=== PATIENT | female | born 1965 | race Caucasian/White ===

== ENCOUNTER 2016-07-10 21:44 | Observation (INO) | payer OTHER ==
[~2016-07-10] VITALS: Ht 165.1 cm; Wt 76.8 kg
--- NOTE | ~2016-07-10 | HEMODYNAMI ---
PATIENT:COLBY KEY MEDICAL RECORD: [id number] : 67 [facility]D. D.2123 [id number] ADMISSION DATE: 07/10/16 Generatedon:07/11/201617:27 Patient name: COLBY KEY Patient #: [id number] SSN: D OB: 1965 Date of study: 07/11/2016 Page: Of Hemodynamic Procedure Report Patient Data Patient Demographics Procedure consent was obtained First Name: COLBY Gender: Female Last Name: YESI : 1965 [facility] Initial: [place] Age: 50 year(s) Patient #: [id number] Race: Unknown Additional ID: [id number] Contact details Address: [place] [address] State: [place] City: [place] Zip code: [address] Past Medical History Allergies: No known allergies Admission Admission Data Admission Date: 07/10/2016 Admission Time: 23:41 Admit Source: Emergency department Room #: D.2123 Lab Results Lab Result Date: 07/11/2016 Lab Result Time: 0:00 Biochemistry Name Units Result Min Max BUN mg/dl 9 --(*---)-- 7 18 Creatinine mg/dl 0.8 --(-*--)-- 0.6 1.3 CBC Name Units Result Min Max Hemoglobin g/dl 13.1 -*(----)-- 13.5 17.5 Procedure Procedure Types Cath Procedure Diagnostic Procedure [facility] w/Coronaries PCI Procedure Coronary Stent Initial Coronary Stent Additional Procedure Description Procedure Date Procedure Date: 07/11/2016 Procedure Start Time: 16:56 Procedure End Time: 17:27 Procedure Staff Name Function Rafael Garrison MD Performing Physician Tomás Jones RN Nurse Mariam Trotter RT Monitor Yonas Perez RT Scrub Sai Hargrove RN X Ray Technician Nikolay Roa RT Monitor Procedure Data Cath Procedure Fluoroscopy Diagnostic fluoroscopy Total fluoroscopy Time: 7.2 time: 7.2 min min Diagnostic fluoroscopy Total fluoroscopy dose: 486 dose: 486 mGy mGy Contrast Material Contrast Material Type Amount (ml) Isovue 300 136 Entry Location Entry Primary Successful Side Size Upsize Upsize Entry Closure Succes sful Closure Location (Fr) 1 (Fr) 2 (Fr) Remarks Device Remarks Femoral Right 6 Fr Vascade artery Short Closure System Estimated blood loss: 10 ml Diagnostic catheters Device Type Used For End Catheter Placement Cordis 5Fr Pigtail Procedure Catheter (MP) Cordis 5Fr JL 4.0 Procedure Catheter (MP) Cordis 5Fr 3DRC Catheter Procedure (MP) Procedure Medications Medication Administration Route Dosage Oxygen NC 2 l/min Lidocaine 2% added to field 20 Heparin Flush Bag added to field 2 bags (1000units/500ml NS) 0.9% NaCl I.V. 100 ml/hr Versed I.V. 1 mg Fentanyl I.V. 50 mcg Versed I.V. 1 mg Fentanyl I.V. 50 mcg Versed I.V. 1 mg Fentanyl I.V. 50 mcg Versed I.V. 1 mg Fentanyl I.V. 50 mcg Heparin Bolus I.V. 4000 units Integrilin (Bolus I.V. 6.8 ml 2mg/ml) Versed I.V. 1 mg Fentanyl I.V. 50 mcg Versed I.V. 1 mg Fentanyl I.V. 50 mcg Plavix P.O. 600 mg Hemodynamics Rest HGB: 13.1 (g/dl) Heart Rate: 76 (bpm) Pressure Samples Time Site Value (mmHg) Purpose Heart Use Rate(bpm) 17:03 LV 93/11,22 Snapshot 102 Snapshots Pre Cath Intra NCS Post Cath Vital Signs Time Heart Resp SPO2 etCO2 QD2iyfd NIBP Rhythm Pain Sedation Rate (ipm) (%) (mmHg) (mmHg) (mmHg) Status Level (bpm) 16:34:06 75 21 97 0 0 130/71(99) NSR 0 (11) 10(A) , No pain 16:38:22 74 21 100 0 0 127/70(95) NSR 0 (11) 10(A) , No pain 16:42:38 70 22 99 0 0 118/66(89) NSR 0 (11) 10(A) , No pain 16:46:52 69 20 99 0 0 115/58(84) NSR 0 (11) 10(A) , No pain 16:51:06 70 19 98 0 0 113/58(76) NSR 0 (11) 10(A) , No pain 16:55:20 73 18 98 0 0 108/57(88) NSR 0 (11) 10(A) , No pain 16:59:30 73 19 99 0 0 113/58(80) NSR 0 (11) 10(A) , No pain 17:03:44 69 16 99 0 0 112/55(80) NSR 0 (11) 9(A) , No pain 17:07:56 74 15 99 0 0 105/55(76) NSR 0 (11) 9(A) , No pain 17:12:06 80 17 99 0 0 106/54(83) NSR 0 (11) 9(A) , No pain 17:16:17 77 16 99 0 0 105/52(80) NSR 0 (11) 9(A) , No pain 17:20:27 81 16 98 0 0 118/55(83) NSR 0 (11) 10(A) , No pain 17:24:37 84 16 98 0 0 113/63(79) NSR 0 (11) 10(A) , No pain Medications Time Medication Route Dose Verified Delivered Reason Notes Effectiveness by by 16:48:01 Oxygen NC 2 Rafael Buffie used for l/min Meli Jones RN procedure 16:48:09 Lidocaine 2% added 20ml Rafael Rafael for local to vial Meli Garrison MD anesthetic field 16:48:16 Heparin Flush added 2 Rafael Rafael used for Bag to bags Meli Garrison MD procedure (1000units/500ml field NS) 16:48:24 0.9% NaCl I.V. 100 Rafael Buffie Per physician ml/hr Meli Jones RN 16:55:18 Versed I.V. 1 mg Rafael Buffie for sedation Meli Jones RN 16:55:23 Fentanyl I.V. 50 Rafael Buffie for sedation mcg Meli Jones RN 16:57:39 Versed I.V. 1 mg Rafael Buffie for sedation Meli Jones RN 16:57:43 Fentanyl I.V. 50 Rafael Buffie for sedation mcg Meli Jones RN 17:01:07 Versed I.V. 1 mg Rafael Buffie for sedation Meli Jones RN 17:01:11 Fentanyl I.V. 50 Rafael Buffie for sedation mcg Meli Jones RN 17:03:33 Versed I.V. 1 mg Rafael Tateie for sedation Meli Jones RN 17:03:36 Fentanyl I.V. 50 Rafael Buffie for sedation mcg Meli Jones RN 17:06:14 Heparin Bolus I.V. 4000 Rafael Buffie for verifi ed units Meli Jones RN anticoagulation with dr garrison 17:08:34 Integrilin I.V. 6.8 Rafael Tateie for (Bolus 2mg/ml) ml Meli Jones RN antiplatelet therapy 17:10:18 Versed I.V. 1 mg Rafael Buffie for sedation Meli Jones RN 17:10:22 Fentanyl I.V. 50 Rafael Buffie for sedation mcg Meli Jones RN 17:16:41 Versed I.V. 1 mg Rafael Tateie for sedation Meli Jones RN 17:16:45 Fentanyl I.V. 50 Rafael Tateie for sedation mcg Meli Jones RN 17:23:16 Plavix P.O. 600 Rafael Tateie for mg Meli Jones RN antiplatelet therapy Procedure Log Time Note 16:00:31 Sai Hargrove RN sent for patient. Start room use. 16:18:05 Admit Source: Emergency department 16:18:29 Diagnostic Cath status Elective 16:18:38 Time tracking: Regular hours 16:18:42 Plan of Care:Hemodynamics will remain stable., Cardiac rhythm will remain stable., Comfort level will be maintained., Respiratory function will remain adequate., Patient/ family verbilizes understanding of procedure., Procedure tolerated without complication., Recovers from procedure without complications.. 16:32:57 Patient received from PCU to CCL 1 Alert and oriented. Tansferred to table in Supine position. 16:32:59 Warm blankets applied, and teodora hugger turned on for patient comfort. 16:32:59 Correct patient and procedure confirmed by team. 16:33:01 Signed procedure consent form obtained from patient. 16:33:01 ECG and BP/O2 sat monitors applied to patient. 16:33:02 Vital chart was started 16:34:34 Baseline sample Acquired. 16:34:35 Full Disclosure recording started 16:39:35 H&P Date Dictated: 07/10/2016 Within 30 days and on chart.. 16:39:39 Pre-procedure instructions explained to patient. 16:39:41 Family in waiting room. 16:39:44 Patient NPO since Midnight. 16:43:52 Patient allergic to No known allergies 16:44:12 Is the patient allergic to Iodine/contrast media? No. 16:44:20 Is patient on blood thinner?Yes 16:44:26 ACC The patient was administered the following blood thiners within the last 24 hours: ACCAspirin, ACCLovenox 16:44:44 Patient diabetic? No. 16:44:51 Snore? Yes 16:44:59 Sleep apnea? No 16:45:00 Deviated septum? No 16:45:02 Opens mouth fully? Yes 16:45:03 Sticks out tongue? Yes 16:45:10 Dentures? No ? 16:45:23 Patient pain scale 0/10 ?. 16:45:30 IV patent on arrival in right forearm with 0.9% NaCl at [facility]. 16:46:45 Lab Result : Creatinine 0.8 mg/dl 16:46:45 Lab Result : BUN 9 mg/dl 16:46:45 Lab Result : Hemoglobin 13.1 g/dl 16:47:06 Modified Albaro's test Ulnar < 7 seconds 16:47:17 Right Radial & Right Groin area was prepped with chlora-prep and draped in sterile fashion 16:47:18 Alarms reviewed by R. N. 16:47:19 Sharps counted by scrub and verified by R.N. 16:47:21 Physician paged 16:47:36 Use device set Radial Dx 16:47:38 Acist Syringe opened to sterile field. 16:47:39 Cardinal Cath Pack opened to sterile field. 16:47:39 Bag Decanter opened to sterile field. 16:47:40 Terumo 6Fr Slender Glidesheath opened to sterile field. 16:47:41 St Lex 260cm J .035 wire opened to sterile field. 16:47:42 Acist Hand Control opened to sterile field. 16:47:42 Acist Manifold opened to sterile field. 16:47:48 Tegaderm 4 x 4 opened to sterile field. 16:48:01 Oxygen 2 l/min NC was given by Buffie Jones RN; used for procedure; 16:48:09 Lidocaine 2% 20ml vial added to field was given by Rafael Garrison MD; for local anesthetic; 16:48:16 Heparin Flush Bag (1000units/500ml NS) 2 bags added to field was given by Rafael Garrison MD; used for procedure; 16:48:24 0.9% NaCl 100 ml/hr I.V. was given by Tomás Jones RN; Per physician; 16:51:25 Zero performed for pressure channel P1 16:54:40 Physician arrived 16:54:41 --------ALL STOP TIME OUT------ 16:54:42 Final Timeout: patient, procedure, and site verified with staff and physician. All members of the team are in agreement. 16:54:51 Right Radial & Right Groin site verified by team. 16:54:56 Physical assessment completed. ASA score P 2 - A patient with mild systemic disease as per Rafael Garrison MD. 16:55:08 Sedation plan: IV Moderate Sedation Versed, Fentanyl 16:55:18 Versed 1 mg I.V. was given by Tomás Jones RN; for sedation; 16:55:23 Fentanyl 50 mcg I.V. was given by Tomás Jones RN; for sedation; 16:56:10 Procedure started. 16:56:18 Local anesthetic to right radial artery with Lidocaine 2% by Rafael Garrison MD.INITIAL ACCESS ONLY 16:57:39 Versed 1 mg I.V. was given by Tomás Jones RN; for sedation; 16:57:43 Fentanyl 50 mcg I.V. was given by Tomás Jones RN; for sedation; 17:00:29 Local anesthetic to right femoral artery with Lidocaine 2% by Rafael Garrison MD.ADDITIONAL ACCESS 17:00:48 Use device set Femoral Dx 17:01:07 Versed 1 mg I.V. was given by Tomás Jones RN; for sedation; 17:01:10 Cordis Infinity 5Fr Multipack catheter opened to sterile field. 17:01:11 Fentanyl 50 mcg I.V. was given by Tomás Jones RN; for sedation; 17:01:27 Terumo 6Fr Megargel Sheath opened to sterile field. 17:01:52 PRESSURE HELD TO RRA 17:02:07 A 6 Fr Short sheath was inserted into the Right Femoral artery 17:02:47 A Cordis 5Fr Pigtail Catheter (MP) was advanced over the wire and used for Procedure. 17:03:25 LV gram done using HOLDER 17:03:27 LV hemodynamics recorded. 17:03:33 Versed 1 mg I.V. was given by Tomás Jones RN; for sedation; 17:03:36 Fentanyl 50 mcg I.V. was given by Tomás Jones RN; for sedation; 17:03:40 LV Function : Normal 17:03:53 EF : 60 % 17:03:57 Catheter removed. 17:04:04 A Cordis 5Fr JL 4.0 Catheter (MP) was advanced over the wire and used for Procedure. 17:04:11 LCA angiography performed. 17:04:31 Catheter removed. 17:04:43 A Cordis 5Fr 3DRC Catheter (MP) was advanced over the wire and used for Procedure. 17:05:14 RCA angiography performed. 17:05:16 Catheter removed. 17:05:17 Proceeding to intervention. 17:05:27 Chappell Upward Mobilityisper J 300cm 0.014 guide wire opened to sterile field. 17:05:29 Cordis 6FR XBLAD 3.5 guide catheter opened to sterile field. 17:05:30 CodasystemixCompak Inflation Kit opened to sterile field. 17:05:56 Procedure type changed to Cath procedure, Diagnostic procedure, LHC, LHC w/Coronaries, PCI procedure, Coronary Stent Initial, Coronary Stent Additional 17:06:03 PCI Cath status Elective 17:06:14 Heparin Bolus 4000 units I.V. was given by Tomás Jones RN; for anticoagulation; verified with dr garrison 17:06:16 ACC PCI Site: mLAD has 75% stenosis. 17:06:21 ACC Pre-intervention CARMELA Flow is 3. 17:06:32 6 Fr XBLAD 3.5 guide catheter was inserted over the wire 17:07:42 WHISPER wire advanced. 17:08:22 Wire advanced across lesion. 17:08:34 Integrilin (Bolus 2mg/ml) 6.8 ml I.V. was given by Tomás Jones RN; for antiplatelet therapy; 17:08:47 Inflation Number: 1 A SeedInvesttronic Resolute 3.0 X 15 stent was prepped and advanced across the Mid LAD. The stent was deployed at 13 YARELIS for 0:10 (min:sec). 17:10:18 Versed 1 mg I.V. was given by Tomás Jones RN; for sedation; 17:10:22 Fentanyl 50 mcg I.V. was given by Tomás Jones RN; for sedation; 17:10:41 Stent catheter was removed intact over wire. 17:12:32 Inflation Number: 1 A Medtronic Resolute 3.0 X 9 stent was prepped and advanced across the Prox LAD. The stent was deployed at 11 YARELIS for 0:10 (min:sec). 17:13:17 Wire redirected to DIAGONAL. 17:13:29 Stent catheter was removed intact over wire. 17:15:34 Inflation number: 1 A Euphora 2.5 x 10 Balloon was prepped and advanced across the 1st Diag, then inflated to 11 YARELIS for 0:10 (min:sec). 17:16:14 Balloon removed over the wire. 17:16:41 Versed 1 mg I.V. was given by Tomás Jones RN; for sedation; 17:16:45 Fentanyl 50 mcg I.V. was given by Tomás Jones RN; for sedation; 17:17:44 Inflation Number: 2 A Medtronic Resolute 2.25 X 8 stent was prepped and advanced across the 1st Diag. The stent was deployed at 11 YARELIS for 0:10 (min:sec). 17:17:56 Stent catheter was removed intact over wire. 17:17:57 Wire removed. 17:17:57 Guide catheter removed. 17:18:19 Vascade 6/7 Fr Closure Device opened to sterile field. 17:18:34 Sheath removed intact; hemostasis achieved with Vascade Closure System to the Right Femoral artery. 17:18:39 Procedure ended.(Physican Out) 17:19:17 Fluoroscopy time 07.20 minutes. 17:19:22 Fluoroscopy dose: 486 mGy 17:19:22 Flurop Dose total: 486 17:19:30 Contrast amount:Isovue 300 136ml. 17:19:31 Sharps counted by scrub and verified by R.N. 17:21:39 MARIAM WAS RELEIVED OUT BY NIKOLAY PRIOR TO PROCEDURE START 17:23:16 Plavix 600 mg P.O. was given by Tomás Jones RN; for antiplatelet therapy; 17:25:05 Insertion/operative site no bleeding no hematoma. 17:25:09 Post-op/insertion site Right Femoral artery dressed using a 4 x 4 and Tegaderm. 17:26:03 Post right femoral artery:stable 17:26:20 Post procedure: right dorsailis pedis pulse 2+ Normal; easily identifiable; not easily obliterated. 17:26:25 Post-procedure physical assessment completed. ASA score P 2 - A patient with mild systemic disease as per Rafael Garrison MD. 17:26:30 Post procedure rhythm: sinus rhythm 17:26:34 Estimated blood loss: 10 ml 17:26:36 Post procedure instruction explained to patient.Patient verbalizes understanding. 17:26:37 Patient needs reinforcement of post procedure teaching. 17:26:39 Procedure and supply charges have been captured, reviewed, submitted and are correct. 17:26:44 Vital chart was stopped 17:26:50 See physician's report for complete and final results. 17:27:05 Report given to PCU. 17:27:12 Patient transfered to PCU with Bed. 17:27:16 Procedure ended. 17:27:16 Full Disclosure recording stopped 17:27:27 ACC-PCI Only Patient was given prescriptions, or instructed by Rafael Garrison MD to start/continue the following medications upon discharge: Aspirin, Plavix 17:27:29 End room use (Document Last) Intervention Summary Intervention Notes Time ActionType Lesion and Equipment Action# Pressure Duration Attributes Used 17:08:47 Place stent Mid LAD Medtronic 1 13 00:10 Resolute 3.0 X 15 stent 17:12:32 Place stent Prox LAD Medtronic 1 11 00:10 Resolute 3.0 X 9 stent 17:15:34 Inflate 1st Diag Euphora 1 11 00:10 balloon 2.5 x [address] 17:17:44 Place stent 1st Diag Medtronic 2 11 00:10 Resolute 2.25 X 8 stent Device Usage Item Name Manufacture Quantity Catalog Hospital Part Current Minima l Lot# / Number Charge Number Stock Stock Serial# Code Pat Stewart 1 27428 [id number] 683345 995314 20 happn [employer] Inc Cardinal Cardinal 1 [id number] 08484 782403 5 Cath Pack Health Bag Microtek 1 042619 78610 800667 5 Foods You Can Inc. Terumo 6Fr Terumo 1 [id number] 474970 175708 832355 [address] Lex St Lex 1 540169 386521 514396 625275 30 260cm J .035 wire Acist Hand Acist 1 25657 891867 915502 098487 5 JoySports Medical Systems Inc Acist Acist 1 45553 695191 784472 365057 5 AccuSilicon Medical Systems Inc Tegaderm 4 3M 1 [id number] 382132 364130 291876 5 x 4 Cordis Cardinal 1 [id number] 077539 14565 172797 30 Infinity Health 5Fr Multipack catheter Terumo 6Fr Terumo 1 [id number] 997113 604850 411671 40 Megargel Sheath Cordis 5Fr Cardinal 1 572324 5 Pigtail Health Catheter (MP) Cordis 5Fr Cardinal 1 [id number] 5 JL 4.0 Health Catheter (MP) Cordis 5Fr Cardinal 1 276028 5 3DRC Health Catheter (MP) Chappell Chappell 1 [id number] 164484 938564 397560 5 Whisper J Vascular 300cm 0.014 guide wire Cordis 6FR Cardinal 1 [id number] 360063 463859 030230 10 XBLAD 3.5 Health guide catheter Merit Merit 1 [id number] 034444 467794 691266 15 BasixCompak Medical Inflation Kit Medtronic Medtronic 1 [id number] 695799 855389 3 [id number] Resolute 3.0 X 15 stent Medtronic Medtronic 1 [id number] 157998 764924 1 [id number] Resolute 3.0 X 9 stent Euphora 2.5 Medtronic 1 [id number] 859196 744354 839940 5 x 10 Balloon Medtronic Medtronic 1 [id number] 469983 379003 9 [id number] Resolute 2.25 X 8 stent Vascade 6/7 Cardiva 1 [id number] 672919 777300 744006 5 Fr Closure Medical, Device Inc. Signature Audit [place] Stage Time Signature Unsigned Intra-Procedure 07/11/2016 Nikolay Roa 5:27:55 PM RT(R) (CV) Signatures Monitor : Mariam Trotter Signature : RT Date : Time : Monitor : Nikolay Roa RT Signature : Date : Time : [address] [place] [address]
[2016-07-10 22:31] LABS: BASOPHILS 0.2 % (0.0-2.0); EOSINOPHILS 2.6 % (0-7); HEMATOCRIT 40.8 % (36.0-48.0); HEMOGLOBIN 13.5 g/dL (12-16); IMMATURE GRANULOCYTES 0.1 % (0-5); LYMPHOCYTES 37.3 % (15-50); MCH 30.1 pg (26.0-34.0); MCHC 33.1 g/dL (31.0-37.0); MCV 91.1 fL (80.0-100.0); MEAN PLATELET VOLUME 9.3 fL (7.4-10.4); MONOCYTES 6.3 % (2-11); NEUTROPHILS 53.5 % (40-80); PLATELET COUNT 281 10x3/uL (130-400); RBC 4.48 10x6/uL (4.00-5.40); RDW 12.4 % (11.5-14.5); WBC 8.2 10x3/uL (4.8-10.8)
[2016-07-10 22:44] LABS: ALBUMIN 3.8 g/dL (3.4-5.0); ALKALINE PHOSPHATASE 59 U/L (46-116); ALT (SGPT) 32 U/L (10-68); CALCIUM 9.1 mg/dL (8.5-10.1); CARBON DIOXIDE 32.4 mmol/L (21.0-32.0); CHLORIDE - SERUM 104 mmol/L (98-107); CREATININE - SERUM 0.8 mg/dL (0.6-1.3); POTASSIUM - SERUM 3.5 mmol/L (3.5-5.1); PROTEIN - SERUM 6.9 g/dL (6.4-8.2); SODIUM 141 mmol/L (136-145); UREA NITROGEN 9 mg/dL (7-18); eGFR NON AFRICAN AMERICAN 81 mL/min (90-120)
[2016-07-10 22:57] LABS: CKMB 0.4 U/L (0.0-3.6); CREATINE KINASE 82 UL (21-215); TROPONIN-I < 0.017 ng/mL (0.000-0.060)
[2016-07-10 23:01] LABS: CALC OSMOLALITY 279 mosm/kg (275-300); GLUCOSE 97 mg/dL (74-106)
--- NOTE | 2016-07-11 00:58 | NUR ---
PT RESTING, BED LOW AND LOCKED, CALL LIGHT IN REACH. RESPIRATIONS UNLABORED AND NO S&S OF ACUTE DISTRESS NOTED. WILL CONTINUE TO MONITOR.
[2016-07-11] MEDS ORDERED: NORVASC2.5 MG PO (02:19)
[2016-07-11] MEDS ORDERED: ATIVAN1 MG (02:19)
[2016-07-11] MEDS ORDERED: PEPCID20 MG PO (02:20)
[2016-07-11] MEDS ORDERED: LIPITOR20 MG PO (02:20)
[2016-07-11 02:32] VITALS: BP 162/79; Ht 165.1 cm; Wt 76.8 kg
[2016-07-11 04:00] VITALS: BP 159/76
[2016-07-11 06:34] LABS: CKMB 0.5 U/L (0.0-3.6); CREATINE KINASE 66 UL (21-215)
[2016-07-11 06:35] LABS: TROPONIN-I < 0.017 ng/mL (0.000-0.060)
--- NOTE | 2016-07-11 06:42 | NUR ---
RESTING QUIETLY IN BED, NO DISTRESS NOTED
--- NOTE | 2016-07-11 07:45 | NUR ---
PATIENT WAS SLEEPING WITH EYES CLOSED THIS MORNING WHEN I ENTERED. SHE AWOKE EASILY. DENIED ANY CHEST PAINS, UNDERSTANDS THAT SHE IS NPO UNTIL SEEN BY MD AND IS WITHOUT QUESTIONS AT THIS TIME. HER IV SL IS WITHOUT S/S OF IRRITATION.
--- NOTE | 2016-07-11 08:13 | NUR ---
ORDERS FOR HEART CATH RECEIVED. EIS TO RECEIVE BREAKFAST AND THEN BE NPO.
[2016-07-11 08:31] VITALS: BP 120/75
[2016-07-11 08:46] LABS: CALC OSMOLALITY 279 mosm/kg (275-300); CALCIUM 8.7 mg/dL (8.5-10.1); CARBON DIOXIDE 27.8 mmol/L (21.0-32.0); CHLORIDE - SERUM 105 mmol/L (98-107); CREATININE - SERUM 0.8 mg/dL (0.6-1.3); GLUCOSE 99 mg/dL (74-106); SODIUM 141 mmol/L (136-145); UREA NITROGEN 9 mg/dL (7-18); eGFR NON AFRICAN AMERICAN 81 mL/min (90-120)
[2016-07-11 08:47] LABS: POTASSIUM - SERUM 4.2 mmol/L (3.5-5.1)
[2016-07-11 08:55] LABS: BASOPHILS 0.4 % (0.0-2.0); EOSINOPHILS 2.5 % (0-7); HEMATOCRIT 39.6 % (36.0-48.0); HEMOGLOBIN 13.1 g/dL (12-16); IMMATURE GRANULOCYTES 0.1 % (0-5); LYMPHOCYTES 43.1 % (15-50); MCH 30.2 pg (26.0-34.0); MCHC 33.1 g/dL (31.0-37.0); MCV 91.2 fL (80.0-100.0); MEAN PLATELET VOLUME 9.7 fL (7.4-10.4); MONOCYTES 6.3 % (2-11); NEUTROPHILS 47.6 % (40-80); PLATELET COUNT 264 10x3/uL (130-400); RBC 4.34 10x6/uL (4.00-5.40); RDW 12.5 % (11.5-14.5); WBC 7.7 10x3/uL (4.8-10.8)
[2016-07-11 11:42] VITALS: BP 109/67
--- NOTE | 2016-07-11 12:49 | NUR ---
RECEIVED CALL FROM ELECTROLOG OPERATOR. BRYNNNET TO EAT LIGHT LUNCH AND THEN NPO. TO GO FOR HEART CATH AFTER CLINIC TODAY. FAMILY NOTIFIED. PATIENT RESTING WITH EYES CLOSED.
[2016-07-11 12:59] LABS: CKMB 0.2 U/L (0.0-3.6); CREATINE KINASE 58 UL (21-215); TROPONIN-I < 0.017 ng/mL (0.000-0.060)
--- NOTE | 2016-07-11 14:16 | NUR ---
TYLENOL GIVEN FOR C/O [place] RATED A 9
[2016-07-11 15:51] VITALS: BP 117/48
--- NOTE | 2016-07-11 18:38 | NUR ---
PATEINT IS RESTING QUIETLY WITH EYES CLOSED, AWAKENS EASILY TO MY ENTRY. HER GROIN IS SOFT WITHOUT EVIDENCE OF BLEEDING.
[2016-07-11 19:00] VITALS: BP 104/54
--- NOTE | 2016-07-11 19:03 | NUR ---
LAYING IN BED, AAOX3, SKIN WARM AND DRY, RESP UNLABORED, IV PATENT TO RIGHT AC, RIGHT GROIN CATH SITE DRY AND INTACT WITH NO SWELLING NOTED, AT BEDSIDE, DENIES NEEDS
[2016-07-12] VITALS: BP 125/67
--- NOTE | 2016-07-12 01:49 | NUR ---
PT SLEEPING. NO S&S OF DISTRESS NOTED. TELEMETRY SHOWING NSR AT 70 BPM. BREATHING UNLABORED. BED LOW AND LOCKED, CALL LIGHT IN REACH. WILL CONTINUE TO MONITOR.
[2016-07-12 04:00] VITALS: BP 120/63
[2016-07-12] MEDS ORDERED: ATIVAN1 MG PO (07:14)
[2016-07-12] MEDS ORDERED: PLAVIX75 MG PO (07:15)
[2016-07-12] MEDS ORDERED: ASPIRIN81 MG PO (07:15)
[2016-07-12 08:21] VITALS: BP 108/57
--- NOTE | 2016-07-12 09:06 | NUR ---
D/C PTS R.AC PIV WITH CATHETER TIP FULLY INTACT. DISCHARGE INSTRUCTIONS GIVEN AND PAPERS SIGNED. PT DENIES ANY QUESTIONS OR CONCERNS. AT BEDSIDE FOR LABOR SPECIALIST. TELEMETRY RETURNED TO STATION. WILL CPOC.
--- NOTE | 2016-07-17 14:16 | OP ---
PATIENT NAME: COLBY KEY MEDICAL RECORD: [id number] :67 LOCATION:D.M2 D.2123 ADMISSION DATE:07/10/16 SURGEON: ELIZABETH MIRELES MD DATE OF OPERATION: 07/11/2016 PROCEDURES: 1. PTCA stent LAD. 2. PTCA stent LAD diagonal. 3. Left heart catheterization. 4. Selective coronary angiography. 5. Left ventriculogram. INDICATION: Angina and coronary artery disease. PROCEDURE: After informed consent was obtained and after detailed explanation of risks, benefits as well as alternative therapies, the patient elected to proceed with angiogram and angioplasty. The right femoral area was prepped and draped in normal sterile fashion. The right femoral artery was cannulated via modified Seldinger technique with placement of 6-Maori sheath. All catheters exchanged through this sheath. FINDINGS: Left ventriculogram was performed in standard 30-degree HOLDER view, reveals good cardiac wall motion throughout all segments. Overall ejection fraction estimated 60%. SELECTIVE CORONARY ANGIOGRAPHY: 1. Left main showed no significant angiographic disease. 2. Left anterior descending has greater than 70% stenosis of the LAD, diagonal as well as the LAD. 3. Left circumflex shows moderate irregularities, but no flow-limiting stenosis. 4. Right coronary has moderate irregularities, but no flow-limiting stenosis. PTCA STENT OF THE LAD and LAD diagonal. The LAD was addressed with a 3.0 x 15 and 3.0 x 9 mm Resolute stent, diagonal with a 2.25 x 9 mm Resolute stent. Result was 0% residual throughout. No angiographic evidence of dissection or thrombus. OVERALL IMPRESSION: Successful percutaneous transluminal coronary angioplasty stent of the left anterior descending and left anterior descending diagonal, both going from greater than 75% initial stenosis to 0% residual. TRANSINT:[id number] Voice Confirmation ID: [id number] DOCUMENT ID: [id number] ELIZABETH MIRELES MD at 1416 CC: [id number] DICTATION DATE: 07/11/16 172 MACHINERY CLEANER: 07/11/161926 DIS IN 07/12/16 [facility] [address] [place] [address]
--- NOTE | 2016-08-11 08:46 | HP ---
PATIENT: COLBY KEY MEDICAL RECORD: [id number] ACCOUNT: [id number] LOCATION:.[facility]2123 : 67 ADMISSION DATE: 07/10/16 HISTORY AND PHYSICAL EXAMINATION ADMITTING DIAGNOSES: 1. Angina. 2. Coronary artery disease. HISTORY OF PRESENT ILLNESS: Mrs. Key presents with chest pain compatible with angina in an escalating unstable fashion, past history of coronary artery disease. PHYSICAL EXAMINATION: GENERAL APPEARANCE: Well-nourished, well-developed, appears stated age. Level of distress, comfortable. PSYCHIATRIC: Mental status, alert, normal affect. Orientation, oriented to time, place and person. EYES: Lids and conjunctiva, noninjected. No discharge, no pallor. ENT: Lips, teeth, gums, normal dentition. Oropharynx, no cyanosis, no pallor. NECK: Carotid arteries, bilateral normal upstroke, no bruits, no thrills. JUGULAR VEINS: No jugular venous pressure or distention. CERVICAL LYMPH NODES: Nontender, nonenlarged. THYROID: Not enlarged. Nontender. No nodules. LUNGS: Respiratory effort, unlabored. CHEST: Normal curvature. No thoracic deformity. No chest wall tenderness. Percussion, resonant. Auscultation, clear. No wheezes, no rales, no rhonchi. CARDIOVASCULAR: Precordial exam, nondisplaced. No heaves or pericardial thrills. Rate and rhythm, regular. Heart sounds, normal S1, normal S2. No S3, no gallop, no rub. Systolic murmur, not heard. Diastolic murmur, not heard. EXTREMITIES: No cyanosis, no edema. Peripheral pulses, full and equal in all extremities, except as noted. No bruits appreciated. ABDOMEN: Soft, nondistended. Normal aorta. No bruit. Nontender. No masses. Liver, nontender, no hepatomegaly. Spleen, nontender, no splenomegaly. MUSCULOSKELETAL: No joint tenderness. No joint swelling. No erythema. NEUROLOGICAL: Normal gait, normal strength, normal tone. SKIN: Warm and dry. REVIEW OF SYSTEMS: The patient reports easy bruising but reports no swollen glands. The patient reports no fever, no night sweats, no significant weight gain, no significant weight loss. No significant exercise tolerance. The patient reports no dry eyes, no irritation, no vision change. Patient reports no difficulty hearing and no ear pain. Patient reports no frequent nose bleeds or nose and sinus problems. Patient reports on arm pain on exertion. No shortness of breath while lying down. No history of heart murmur. Patient reports no cough, no wheezing or coughing up blood. Patient reports no abdominal pain, no vomiting. Normal appetite. No diarrhea and not vomiting blood. No nausea and no constipation. Patient reports no incontinence. No difficulty urinating. No hematuria. No increased frequency. Patient reports no muscle aches. No weakness, no arthralgias, no back pain. No swelling of the extremities. Patient reports no abnormal mole, no jaundice, no rashes. Reports no loss of consciousness. No weakness and no numbness. No seizures, dizziness, or headaches. The patient reports no depression, no sleep disturbance, feeling safe in a relationship and no alcohol abuse. Patient reports on fatigue. Reports no runny nose or sinus pressure. No itching, no hives, and no frequent HISTORY AND PHYSICAL [id number] COLBY KEY sneezing. OVERALL IMPRESSION: Anginal symptomatology, escalating fashion, most likely she does have hemodynamically significant recurrent coronary artery disease. We will proceed with coronary angiography. Further care depends upon findings of the angiography. TRANSINT:[id number] Voice Confirmation ID: [id number] DOCUMENT ID: [id number] ELIZABETH MIRELES MD at 0846 CC: [id number] DICTATION DATE: 07/28/16 1228 LEATHER PRODUCTION ARTISAN: 07/28/16 1257 DIS IN 07/12/16 [id number] [place] [address]
--- NOTE | 2016-09-14 08:41 | DS ---
PATIENT:COLBY KEY :67 MEDICAL RECORD: [id number] DISCHARGE SUMMARY ADMISSION DATE: 07/10/16 DISCHARGE DATE: 07/12/16 DISCHARGE DIAGNOSES: 1. Angina. 2. Coronary artery disease. 3. Percutaneous transluminal coronary angioplasty stent left anterior descending and left anterior descending diagonal on this admission. HOSPITAL COURSE: Ms. Key presents with anginal symptomatology, found to have significant disease of the LAD and LAD diagonal and underwent successful PTCA stent of both territories. She had an uneventful postop course. She was discharged home with the addition of aspirin and Plavix to her medical regimen. We will follow up with [facility] in 1 month. TRANSINT:[id number] Voice Confirmation ID: [id number] DOCUMENT ID: [id number] ELIZABETH MIRELES MD at 0841 CC: [id number] DICTATION DATE: 09/12/16 1445 BLADDER BLOWER: 09/13/16 0253 DIS IN 07/12/16 [id number] [place] [address]
== END 2016-07-12 09:55 | disposition home or self-care (01) ==
LOC: D.ER 21:44 → OBSVTIME 23:41 → D.M2 23:41
PROVIDERS: Emergency Medicine; ADMIT Internal Medicine Interventional Cardiology
DX: I25.110 Atherosclerotic heart disease of native coronary artery with unstable angina pectoris (principal); I10 Essential (primary) hypertension; Z72.0 Tobacco use

== ENCOUNTER → 2016-07-27 17:03 | Outpatient (CLI) | payer OTHER ==
[2016-07-11 02:32] VITALS: BMI 28.1
[~2016-07-27 17:03] MED LIST: ASPIRIN81 MG PO; ATIVAN1 MG; ATIVAN1 MG PO; LIPITOR20 MG PO; NORVASC2.5 MG PO; PEPCID20 MG PO; PLAVIX75 MG PO; PRILOSEC10 M1 PO
== END | disposition home or self-care (01) ==
LOC: D.CT 17:00
DX: R10.9 Unspecified abdominal pain (principal)

== ENCOUNTER 2016-09-07 20:46 | Emergency (ER) | payer OTHER ==
[2016-07-11 02:32] VITALS: BMI 28.1
[~2016-09-07 20:46] MED LIST changes: -PRILOSEC10 M1 PO
[2016-09-07 22:08] LABS: BASOPHILS 0.4 % (0.0-2.0); EOSINOPHILS 5.1 % (0-7); HEMATOCRIT 40.2 % (36.0-48.0); HEMOGLOBIN 13.6 g/dL (12-16); IMMATURE GRANULOCYTES 0.1 % (0-5); LYMPHOCYTES 36.7 % (15-50); MCHC 33.8 g/dL (31.0-37.0); MCV 91.6 fL (80.0-100.0); MEAN PLATELET VOLUME 9.4 fL (7.4-10.4); MONOCYTES 6.8 % (2-11); NEUTROPHILS 50.9 % (40-80); PLATELET COUNT 252 10x3/uL (130-400); RBC 4.39 10x6/uL (4.00-5.40); RDW 12.6 % (11.5-14.5); WBC 7.2 10x3/uL (4.8-10.8)
[2016-09-07 22:23] LABS: ALBUMIN 4.2 g/dL (3.4-5.0); ALKALINE PHOSPHATASE 72 U/L (46-116); ALT (SGPT) 39 U/L (10-68); BILIRUBIN - TOTAL 0.26 mg/dL (0.2-1.3); CALC OSMOLALITY 284 mosm/kg (275-300); CALCIUM 9.3 mg/dL (8.5-10.1); CARBON DIOXIDE 28.7 mmol/L (21.0-32.0); CHLORIDE - SERUM 105 mmol/L (98-107); CREATININE - SERUM 0.9 mg/dL (0.6-1.3); GLUCOSE 98 mg/dL (74-106); POTASSIUM - SERUM 3.9 mmol/L (3.5-5.1); PROTEIN - SERUM 7.8 g/dL (6.4-8.2); SODIUM 142 mmol/L (136-145); UREA NITROGEN 18 mg/dL (7-18); eGFR NON AFRICAN AMERICAN 70 mL/min (90-120)
[2016-09-07 22:51] LABS: CKMB 0.5 U/L (0.0-3.6); CREATINE KINASE 96 UL (21-215)
[2016-09-07 22:52] LABS: TROPONIN-I < 0.017 ng/mL (0.000-0.060)
== END 2016-09-07 23:28 | disposition home or self-care (01) ==
LOC: D.ER 20:46
PROVIDERS: Family Medicine
DX: R07.9 Chest pain, unspecified (principal); K22.70 Barrett's esophagus without dysplasia; F41.0 Panic disorder [episodic paroxysmal anxiety]; R00.1 Bradycardia, unspecified

== ENCOUNTER 2016-09-18 07:24 | Outpatient (CLI) | payer OTHER ==
[~2016-09-18] VITALS: Ht 165.1 cm; Wt 77.3 kg
--- NOTE | ~2016-09-18 | HEMODYNAMI ---
PATIENT:COLBY KEY MEDICAL RECORD: [id number] : 67 LOCATION:[facility] ADMISSION DATE: 09/18/16 Generatedon:09/18/20169:43 Patient name: COLBY KEY Patient #: [id number] SSN: [id number] : 1965 Date of study: 09/18/2016 Page: Of Hemodynamic Procedure Report Patient Data Patient Demographics Procedure consent was obtained First Name: COLBY Gender: Female Last Name: YESI : 1965 [facility] Initial: [place] Age: 51 year(s) Patient #: [id number] Race: SSN: [id number] Additional ID: [id number] Contact details Address: [place] [place] [address] State: [place] City: [place] Zip code: [address] Past Medical History Allergies: No known allergies Admission Admission Data Admission Date: 09/18/2016 Admission Time: 7:24 Arrival Date: 09/18/2016 Arrival Time: 9:30 Admit Source: Other Insurance Payor: Private health insurance Height (in.): 65 BSA: 1.88 (m2) Height (cm.): 165.1 BMI: 29.45 (kg/m2) Weight (lbs.): 177 Weight (kg.): 80.29 Lab Results Lab Result Date: 09/18/2016 Lab Result Time: 0:00 Biochemistry Name Units Result Min Max BUN mg/dl 14 --(--*-)-- 7 18 Creatinine mg/dl 0.9 --(-*--)-- 0.6 1.3 CBC Name Units Result Min Max Hemoglobin g/dl 12.8 -*(----)-- 13.5 17.5 Procedure Procedure Types Cath Procedure Diagnostic Procedure LHC LHC w/Coronaries Miscellaneous Procedures Moderate Sedation up to 15 minutes Procedure Description Procedure Date Procedure Date: 09/18/2016 Procedure Start Time: 9:32 Procedure End Time: 9:40 Procedure Staff Name Function Rafael Garrison MD Performing Physician Maria De Jesus Ace RT Scrub Tomás Jones RN Nurse Serena Trotter RT Monitor Indication Angina Procedure Data Cath Procedure Fluoroscopy Diagnostic fluoroscopy Total fluoroscopy Time: 0.7 time: 0.7 min min Diagnostic fluoroscopy Total fluoroscopy dose: 229 dose: 229 mGy mGy Contrast Material Contrast Material Type Amount (ml) Isovue 370 43 Entry Location Entry Primary Successful Side Size Upsize Upsize Entry Closure Succes sful Closure Location (Fr) 1 (Fr) 2 (Fr) Remarks Device Remarks Femoral Right 5 Fr Exoseal artery Estimated blood loss: 5 ml Diagnostic catheters Device Type Used For End Catheter Placement Cordis 5Fr Pigtail LV Angiography Catheter (MP) Cordis 5Fr JL 4.0 Left Coronary Catheter (MP) Angiography Cordis 5Fr 3DRC Catheter Right Coronary (MP) Angiography Procedure Complications No complications Procedure Medications Medication Administration Route Dosage Oxygen NC 2 l/min Lidocaine 2% added to field 20 Heparin Flush Bag added to field 2 bags (1000units/500ml NS) 0.9% NaCl I.V. 100 ml/hr Versed I.V. 1 mg Fentanyl I.V. 50 mcg Versed I.V. 1 mg Fentanyl I.V. 50 mcg Fentanyl I.V. 50 mcg Versed I.V. 0.5 mg Fentanyl I.V. 50 mcg Hemodynamics Rest BSA: 1.88 (m2) HGB: 12.8 (g/dl) O2 Consumption: Estimated: 187.79 (ml/min) O2 Co nsumption indexed: Estimated:99.89 (ml/min/m) Heart Rate: 75 (bpm) Pressure Samples Time Site Value (mmHg) Purpose Heart Use Rate(bpm) 9:33 LV 23/19,23 Snapshot 82 Snapshots Pre Cath Intra NCS Post Cath Vital Signs Time Heart Resp SPO2 etCO2 LC6urdr NIBP (mmHg) Rhythm Pain Sedation Rate (ipm) (%) (mmHg) (mmHg) Status Level (bpm) 9:15:32 75 18 98 0 0 151/80(110) NSR 0 (11) 10(A) , No pain 9:19:48 71 20 98 0 0 147/82(130) NSR 0 (11) 10(A) , No pain 9:24:08 64 16 97 0 0 138/70(116) NSR 0 (11) 10(A) , No pain 9:28:26 63 13 100 0 0 115/67(91) NSR 0 (11) 9(A) , No pain 9:32:36 68 15 100 0 0 125/64(86) NSR 0 (11) 9(A) , No pain 9:36:48 67 20 99 0 0 111/65(85) NSR 0 (11) 9(A) , No pain 9:40:56 69 16 99 0 0 125/65(92) NSR 0 (11) 10(A) , No pain Medications Time Medication Route Dose Verified Delivered Reason Notes Effec tiveness by by 9:17:31 Oxygen NC 2 Rafael Buffie used for l/min Meli Jones RN procedure 9:17:37 Lidocaine 2% added 20ml Rafael Rafael for local to vial Meli Garrison MD anesthetic field 9:17:43 Heparin Flush added 2 Rafael Rafael used for Bag to bags Meli Garrison MD procedure (1000units/500ml field NS) 9:17:51 0.9% NaCl I.V. 100 Rafael Buffie Per ml/hr Meli Jones RN physician 9:24:26 Versed I.V. 1 mg Rafael Tateie for Meli Jones RN sedation 9:24:32 Fentanyl I.V. 50 Rafael Buffie for mcg Meli Jones RN sedation 9:28:37 Versed I.V. 1 mg Rafael Buffie for Meli Jones RN sedation 9:28:43 Fentanyl I.V. 50 Rafael Tateie for mcg Meli Jones RN sedation 9:32:21 Fentanyl I.V. 50 Rafael Tateie for mcg Meli Jones RN sedation 9:34:42 Versed I.V. 0.5 Rafael Buffie for mg Meli Jones RN sedation 9:34:46 Fentanyl I.V. 50 Rafael Buffie for mcg Meli Jones RN sedation Procedure Log Time Note 9:02:19 Informed consent obtained and on chart 9:02:45 Admit Source: Other 9:02:48 Patient Height : 65 cm 9:03:00 Patient Weight : 177 kg 9:04:20 Arrival Date: 09/18/2016 9:30:00 AM 9:04:30 Insurance Payor : Private health insurance 9:04:56 Lab Result : Hemoglobin 12.8 g/dl 9:04:56 Lab Result : Creatinine 0.9 mg/dl 9:04:56 Lab Result : BUN 14 mg/dl 9:05:15 Diagnostic Cath Status : Elective 9:05:34 Indication : Angina 9:05:38 Tomás Jones RN sent for patient. Start room use. 9:05:39 Time tracking: Regular hours 9:05:45 Plan of Care:Hemodynamics will remain stable., Cardiac rhythm will remain stable., Comfort level will be maintained., Respiratory function will remain adequate., Patient/ family verbilizes understanding of procedure., Procedure tolerated without complication., Recovers from procedure without complications.. 9:09:57 Patient received from Pre/Post Procedure Room to CCL 1 Alert and oriented. Tansferred to table in Supine position. 9:10:02 Warm blankets applied, and teodora hugger turned on for patient comfort. 9:10:03 Correct patient and procedure confirmed by team. 9:10:04 ECG and BP/O2 sat monitors applied to patient. 9:14:22 Vital chart was started 9:14:23 Baseline sample Acquired. 9:14:28 Rhythm: sinus rhythm 9:14:30 Full Disclosure recording started 9:14:50 H&P Date Dictated: 09/14/2016 Within 30 days and on chart., H&P Addendum completed by physician on day of procedure. (MUST COMPLETE FOR ALL OUTPATIENTS). 9:14:52 Pre-procedure instructions explained to patient. 9:14:52 Pre-op teaching completed and patient verbalized understanding. 9:14:53 Family in waiting room. 9:14:55 Patient NPO since Midnight. 9:15:05 Is the patient allergic to Iodine/contrast media? No. 9:15:07 Was the patient premedicated? No 9:15:09 Is patient on blood thinner?Yes 9:15:12 ACC The patient was administered the following blood thiners within the last 24 hours: ACCPlavix 9:15:15 Patient diabetic? No. 9:15:18 Previous problem with sedation/anesthesia? No ? 9:15:20 Snore? Yes 9:15:21 Sleep apnea? No 9:15:22 Deviated septum? No 9:15:23 Opens mouth fully? Yes 9:15:24 Sticks out tongue? Yes 9:15:26 Airway obstruction? No ? 9:15:30 Dentures? No ? 9:15:33 Pre procedure: right dorsailis pedis pulse 1+ Palpable, but thready & weak; easily obliterated 9:15:36 Patient pain scale 0/10 ?. 9:15:46 IV patent on arrival in left forearm with 0.9% NaCl at KVO. 9:15:50 Lab results completed and on chart. 9:15:55 Right Radial & Right Groin area was prepped with chlora-prep and draped in sterile fashion 9:15:56 Alarms reviewed by R. N. 9:15:57 Sharps counted by scrub and verified by R.N. 9:17:31 Oxygen 2 l/min NC was administered by Tmoás Jones RN; used for procedure; 9:17:37 Lidocaine 2% 20ml vial added to field was administered by Rafael Garrison MD; for local anesthetic; 9:17:43 Heparin Flush Bag (1000units/500ml NS) 2 bags added to field was administered by Rafael Garrison MD; used for procedure; 9:17:51 0.9% NaCl 100 ml/hr I.V. was administered by Tomás Jones RN; Per physician; 9:23:56 Physician arrived 9:23:56 --------ALL STOP TIME OUT------ 9:23:57 Final Timeout: patient, procedure, and site verified with staff and physician. All members of the team are in agreement. 9:23:59 Right groin site verified by team. 9:24:03 Physical assessment completed. ASA score P 2 - A patient with mild systemic disease as per Rafael Garrison MD. 9:24:08 Sedation plan: IV Moderate Sedation Versed, Fentanyl 9:24:15 Use device set Femoral Dx 9:24:16 Acist Syringe opened to sterile field. 9:24:17 Bag Decanter opened to sterile field. 9:24:17 Medline Cath Pack opened to sterile field. 9:24:17 Terumo 5Fr Elk Sheath opened to sterile field. 9:24:19 St Lex 260cm J .035 wire opened to sterile field. 9:24:20 Acist Hand Control opened to sterile field. 9:24:21 Acist Manifold opened to sterile field. 9:24:21 Diagnostic Infinity 5Fr Multipack catheter opened to sterile field. 9:24:21 Tegaderm 4 x 4 opened to sterile field. 9:24:26 Versed 1 mg I.V. was administered by Tomás Jones RN; for sedation; 9:24:32 Fentanyl 50 mcg I.V. was administered by Tomás Jones RN; for sedation; 9:28:37 Versed 1 mg I.V. was administered by Tomás Jones RN; for sedation; 9::43 Fentanyl 50 mcg I.V. was administered by Tomás Jones RN; for sedation; 9:30:21 Zero performed for pressure channel P1 9:32:21 Fentanyl 50 mcg I.V. was administered by Tomás Jones RN; for sedation; :32: Procedure started. 9:32:29 Local anesthetic to right femoral artery with Lidocaine 2% by Rafael Garrison MD.INITIAL ACCESS ONLY 9:32:41 A 5 Fr sheath was inserted into the Right Femoral artery 9:33:04 A Cordis 5Fr Pigtail Catheter (MP) was advanced over the wire and used for LV Angiography. 9:33:53 LV hemodynamics recorded. 9:33:54 LV gram done using HOLDER 9:33:57 Injector settings: Ml/sec: 5, Volume: 15, 9:34:04 EF : 60 % 9:34:08 Catheter removed. 9:34:13 A Cordis 5Fr JL 4.0 Catheter (MP) was advanced over the wire and used for Left Coronary Angiography. 9:34:42 Versed 0.5 mg I.V. was administered by Tomás Jones RN; for sedation; 9:34:46 Fentanyl 50 mcg I.V. was administered by Tomás Jones RN; for sedation; 9:34:59 LCA angiography performed. 9:35:03 Injector settings: Ml/sec: 3, Volume: 6, 9:35:58 Catheter removed. 9:36:04 A Cordis 5Fr 3DRC Catheter (MP) was advanced over the wire and used for Right Coronary Angiography. 9:36:10 RCA angiography performed. 9:36:13 Injector settings: Ml/sec: 3, Volume: 6, 9:36:41 Catheter removed. 9:36:51 Cordis 5Fr Exoseal opened to sterile field. 9:37:13 Sheath removed intact; hemostasis achieved with Exoseal to the Right Femoral artery. 9:38:01 Procedure ended.(Physican Out) 9:38:28 Fluoroscopy time 00.70 minutes. 9:38:32 Fluoroscopy dose: 229 mGy 9:38:32 Flurop Dose total: 229 9:38:38 Contrast amount:Isovue 370 43ml. 9:38:41 Sharps counted by scrub and verified by R.N. 9:38:50 Insertion/operative site no bleeding no hematoma. 9:39:14 Post-op/insertion site Right Femoral artery dressed using a 4 x 4 and Tegaderm. 9:39:18 Post right femoral artery:stable 9:39:32 Post Procedure Pulses reassessed and unchanged 9:39:51 Post procedure rhythm: sinus rhythm 9:39:54 Estimated blood loss: 5 ml 9:39:56 Post procedure instruction explained to patient.Patient verbalizes understanding. 9:39:57 Patient needs reinforcement of post procedure teaching. 9:40:11 Procedure type changed to Cath procedure, Diagnostic procedure, LHC, LHC w/Coronaries, Miscellaneous Procedures, Moderate Sedation up to 15 minutes 9:40:12 Procedure and supply charges have been captured, reviewed, submitted and are correct. 9:40:17 Procedure Complication : No complications 9:40:20 Vital chart was stopped 9:40:21 See physician's report for complete and final results. 9:40:24 Report given to Pre/Post Procedure Room. 9:40:27 Patient transfered to Pre/Post Procedure Room with Stretcher. 9:40:29 Procedure ended. 9:40:29 Full Disclosure recording stopped 9:40:33 End room use (Document Last) 9:42:10 Sai Hargrove RN was relieved by Maria De Jesus CALL(R) as monitoring person Device Usage Item Name Manufacture Quantity Catalog Hospital Part Current Minimal Lo t# / Number Charge Number Stock Stock Serial# Code Acist Acist 1 [id number] [id number] 143876 20 Syringe [employer] Inc Bag Microtek 1 2002S 751931 50454 759047 5 Decanter [employer] Medline Cardinal 1 [id number] 134786 52893 045881 5 Cath Pack Health Terumo 5Fr Terumo 1 [id number] 511505 186839 679974 [address] Lex St Lex 1 335959 243500 879339 929076 30 260cm J .035 wire Acist Hand Acist 1 84678 344576 894145 718928 5 Control [employer] Inc Acist Acist 1 35482 108034 087361 633753 5 Manifold Medical [employer] Inc Diagnostic Cardinal 1 [id number] 432165 80550 315171 30 Infinity Health 5Fr Multipack catheter Tegaderm 4 3M 1 1626W 107375 138184 470167 5 x 4 Cordis 5Fr Cardinal 1 196627 5 Pigtail Health Catheter (MP) Cordis 5Fr Cardinal 1 963177 5 JL 4.0 Health Catheter (MP) Cordis 5Fr Cardinal 1 987403 5 3DRC Health Catheter (MP) Cordis 5Fr Cardinal 1 EX500 080887 470139 341573 10 stickapps Signature Audit Umbarger Stage Time Signature Unsigned Intra-Procedure 09/18/2016 Maria De Jesus Db 9:42:57 AM RT(R) Signatures Monitor : Serena Trotter Signature : RT Date : Time : [facility] [address] [id number]
[2016-09-18] MEDS ORDERED: PRILOSEC10 M1 PO (07:47)
[2016-09-18 07:49] VITALS: BP 130/65; Ht 165.1 cm; Wt 77.3 kg
[2016-09-18 08:17] LABS: BASOPHILS 0.4 % (0.0-2.0); EOSINOPHILS 3.9 % (0-7); HEMATOCRIT 38.5 % (36.0-48.0); HEMOGLOBIN 12.8 g/dL (12-16); IMMATURE GRANULOCYTES 0.1 % (0-5); MCHC 33.2 g/dL (31.0-37.0); MCV 90.2 fL (80.0-100.0); MEAN PLATELET VOLUME 9.3 fL (7.4-10.4); MONOCYTES 8.1 % (2-11); NEUTROPHILS 56.5 % (40-80); PLATELET COUNT 238 10x3/uL (130-400); RBC 4.27 10x6/uL (4.00-5.40); RDW 12.6 % (11.5-14.5); WBC 6.7 10x3/uL (4.8-10.8)
[2016-09-18 08:24] LABS: ANION GAP 13.4 mmol/L (8-16); CALCIUM 8.7 mg/dL (8.5-10.1); CARBON DIOXIDE 27.1 mmol/L (21.0-32.0); CREATININE - SERUM 0.9 mg/dL (0.6-1.3); POTASSIUM - SERUM 3.5 mmol/L (3.5-5.1)
--- NOTE | 2016-09-18 10:05 | NUR ---
RESTING IN BED WITH EYES CLOSED. ROOM AIR, NO RESP DISTRESS NOTED. VSS. RIGHT GROIN EXOSEAL CDI, NO BLEEDING OR HEMATOMA NOTED. NO C/O CHEST PAIN OR NAUSEA. INSTRUCTED PT TO KEEP HEAD FLAT ON PILLOW AND RIGHT LEG STRAIGHT.
--- NOTE | 2016-09-18 10:35 | NUR ---
IN BED SLEEPING. ROOM AIR, NO RESP DISTRESS NOTED. VSS. RIGHT GROIN CDI, NO BLEEDING OR HEMATOMA NOTED. NO C/O CHEST PAIN OR NAUSEA. WILL CONTINUE TO MONITOR.
--- NOTE | 2016-09-18 10:53 | NUR ---
HOB ELEVATED 30 DEGREES. RIGHT GROIN CDI, NO BLEEDING NOTED.
--- NOTE | 2016-09-18 11:06 | NUR ---
SANDWICH TRAY GIVEN. NO C/O NAUSEA OR CHEST PAIN. VSS. RIGHT GROIN CDI, NO BLEEDING OR HEMATOMA NOTED.
--- NOTE | 2016-09-18 11:19 | NUR ---
LEFT HAND PIV D/C'D WITH CATHETER INTACT, BAND AID TO SITE. UP TO BEDSIDE TO GET DRESSED.
--- NOTE | 2016-09-18 11:25 | NUR ---
UP TO RESTROOM TO VOID.
--- NOTE | 2016-09-18 11:30 | NUR ---
DISCHARGE INSTRUCTIONS GIVEN, VERBALIZED UNDERSTANDING.
--- NOTE | 2016-09-18 11:38 | NUR ---
TAKEN OUT VIA WHEELCHAIR BY [facility] ADVISOR. LEFT FACILITY WITH AND ALL PERSONAL BELONGINGS.
--- NOTE | 2016-09-29 10:19 | OP ---
PATIENT NAME: COLBY KEY MEDICAL RECORD: [id number] :67 LOCATION:[facility] ADMISSION DATE: SURGEON: ELIZABETH MIRELES MD DATE OF OPERATION: 09/18/2016 PROCEDURES: 1. Left heart catheterization. 2. Selective coronary angiography. 3. Left ventriculogram. INDICATION: Angina, coronary artery disease, previous PTCA stent LAD. PROCEDURE: After informed consent was obtained and after detailed explanation of risks, benefits as well as alternative therapies, the patient elected to proceed with angiogram and heart catheterization. The right femoral area is prepped and draped in normal sterile fashion. Right femoral artery was cannulated via modified Seldinger technique with placement of 5-Marshallese sheath. All catheters exchanged through this sheath. FINDINGS: Left ventriculogram was performed in standard 30-degree HOLDER view, reveals good cardiac wall motion throughout all segments. Overall ejection fraction is ____. SELECTIVE CORONARY ANGIOGRAPHY: 1. Left main is with no significant angiographic disease. 2. Left anterior descending has previously placed stent in the LAD and diagonal. These were both widely patent with no significant disease. No disease elsewise throughout the LAD or its branches. 3. Left circumflex has moderate irregularities, but no flow-limiting stenosis. 4. Right coronary has moderate irregularities, but no flow-limiting stenosis. OVERALL IMPRESSION: Wide patency of the previously placed stents in the LAD and diagonal, no disease elsewise and normal left ventricular function. Continue medical management of the coronary artery disease and cardiac risk factors. TRANSINT:[id number] Voice Confirmation ID: [id number] DOCUMENT ID: [id number] ELIZABETH MIRELES MD at 1019 CC: [id number] DICTATION DATE: 09/18/16 0941 [employer] SUPERINTENDENT: 09/18/16 1123 DEP CLI 09/18/16 [place] [id number]
== END 2016-09-18 11:38 | disposition home or self-care (01) ==
LOC: D.CATH 07:24
PROVIDERS: Internal Medicine Interventional Cardiology
DX: I25.119 Atherosclerotic heart disease of native coronary artery with unspecified angina pectoris (principal); Z95.5 Presence of coronary angioplasty implant and graft

== ENCOUNTER → 2017-08-31 09:17 | Outpatient (CLI) | payer OTHER ==
[~2017-08-31] VITALS: Ht 165.1 cm; Wt 75.9 kg
--- NOTE | ~2017-08-31 | OP ---
PATIENT NAME: COLBY KEY MEDICAL RECORD: [id number] :67 LOCATION:[facility] ADMISSION DATE: SURGEON: ELIZABETH MIRELES MD DATE OF OPERATION: 08/31/2017 PROCEDURES: 1. Left heart catheterization. 2. Selective coronary angiography. 3. Left ventriculogram. INDICATIONS: Angina, coronary artery disease, previous PTCA with stent. PROCEDURE IN DETAIL: After informed consent was obtained and after detailed explanation of the risks and benefits as well as alternative therapies, the patient elected to proceed with angiogram and heart catheterization. The right femoral area was prepped and draped in normal sterile fashion. The right femoral artery was cannulated via modified Seldinger technique with placement of 5-Guinean sheath. All catheters were exchanged through this sheath. FINDINGS: Left ventriculogram was performed in standard 30-degree HOLDER view, reveals good cardiac wall motion, ejection fraction 55%. SELECTIVE CORONARY ANGIOGRAPHY: 1. Left main is with no significant angiographic disease. 2. Left anterior descending and diagonal have previously placed stents. These are widely patent with no significant restenosis. No disease elsewise at the LAD or its branches. 3. The left circumflex has moderate irregularities, but no flow-limiting stenosis. 4. Right coronary has moderate irregularities, but no flow-limiting stenosis. OVERALL IMPRESSION: Wide patency of the previously placed stents with no disease elsewise. Continue medical management of the coronary artery disease and cardiac risk factors. TRANSINT:[id number] Voice Confirmation ID: [id number] DOCUMENT ID: [id number] ELIZABETH MIRELES MD at 1351 CC: [id number] DICTATION DATE: 10/09/17 1119 ASSOCIATE PROFESSOR OF EDUCATION: 10/09/17 1251 DEP CLI 08/31/17 [place] [address]
--- NOTE | ~2017-08-31 | HEMODYNAMI ---
PATIENT:COLBY KEY MEDICAL RECORD: [id number] : 67 LOCATION:[facility] ADMISSION DATE: 08/31/17 Generatedon:08/31/201713:25 Patient name: COLBY KEY Patient #: [id number] SSN: [id number] : 1965 Date of study: 08/31/2017 Page: Of Hemodynamic Procedure Report Patient Data Patient Demographics Procedure consent was obtained First Name: COLBY Gender: Female Last Name: YESI : 1965 [facility] Initial: [place] Age: 52 year(s) Patient #: [id number] Race: SSN: [id number] Additional ID: [id number] Contact details Address: [address] [place] [address] State: [place] City: [place] Zip code: [address] Past Medical History Allergies: No known allergies Admission Admission Data Admission Date: 08/31/2017 Admission Time: 9:17 Procedure Procedure Types Cath Procedure Diagnostic Procedure C [facility] w/Coronaries Procedure Description Procedure Date Procedure Date: 08/31/2017 Procedure Start Time: 13:11 Procedure End Time: 13:22 Procedure Staff Name Function Rafael Garrison MD Performing Physician Yonas Perez RT Monitor Sai Hargrove RN Nurse Danielle Marie RT Scrub Procedure Data Cath Procedure Fluoroscopy Diagnostic fluoroscopy Total fluoroscopy Time: 0.7 time: 0.7 min min Diagnostic fluoroscopy Total fluoroscopy dose: 71 dose: 71 mGy mGy Contrast Material Contrast Material Type Amount (ml) Isovue 300 51 Entry Location Entry Primary Successful Side Size Upsize Upsize Entry Closure Succes sful Closure Location (Fr) 1 (Fr) 2 (Fr) Remarks Device Remarks Femoral Right 5 Fr Exoseal artery Estimated blood loss: 10 ml Diagnostic catheters Device Type Used For End Catheter Placement MULTIPACK Pigtail 5 Fr Procedure catheter MULTIPACK JL 4.0 5Fr Procedure catheter MULTIPACK 3DRC 5Fr Procedure catheter Procedure Complications No complications Procedure Medications Medication Administration Route Dosage Oxygen NC 2 l/min Heparin Flush Bag added to field 2 bags (1000units/500ml NS) 0.9% NaCl I.V. ml/hr Fentanyl I.V. 50 mcg Versed I.V. 1 mg Fentanyl I.V. 50 mcg Versed I.V. 1 mg Fentanyl I.V. 50 mcg Versed I.V. 1 mg Fentanyl I.V. 50 mcg Versed I.V. 1 mg Hemodynamics Rest Heart Rate: 81 (bpm) Snapshots Pre Cath Intra NCS Post Cath Vital Signs Time Heart Resp SPO2 etCO2 NIBP (mmHg) Rhythm Pain Sedation Rate (ipm) (%) (mmHg) Status Level (bpm) 13:01:59 62 15 100 0 149/78(121) NSR 0 (11) 10(A) , No pain 13:06:25 59 16 100 37.2 142/69(118) NSR 0 (11) 10(A) , No pain 13:10:41 68 15 100 32 127/71(102) NSR 0 (11) 10(A) , No pain 13:15:44 61 16 100 40.2 119/61(79) NSR 0 (11) 9(A) , No pain 13:20:00 62 16 99 40.9 117/65(91) NSR 0 (11) 9(A) , No pain Medications Time Medication Route Dose Verified Delivered Reason Notes Effec tiveness by by 13:06:43 Oxygen NC 2 Rafael Gibbs Per l/min Meli Hargrove RN physician 13:06:58 Heparin Flush added 2 Rafael Gibbs used for Bag to bags Meli Hargrove electrical continuity inspector (1000units/500ml field NS) 13:07:06 0.9% NaCl I.V. ml/hr Rafael Gibbs Per Meli Hargrove RN physician 13:07:21 Fentanyl I.V. 50 Rafael Gibbs for mcg Meli Hargrove RN sedation 13:07:29 Versed I.V. 1 mg Rafael Gibbs for Meli Hargrove RN sedation 13:11:21 Fentanyl I.V. 50 aRfael Gibbs for mcg Meli Hargrove RN sedation 13:11:29 Versed I.V. 1 mg Rafael Gibbs for Meli Hargrove RN sedation 13:14:25 Fentanyl I.V. 50 Rafael Hargrove RN sedation 13:14:29 Versed I.V. 1 mg Rafael Hargrove RN sedation 13:16:07 Fentanyl I.V. 50 Rafael Hargrove RN sedation 13:16:13 Versed I.V. 1 mg Rafael Hargrove RN sedation Procedure Log Time Note 12:40:03 Yonas Perez RT(R) sent for patient. Start room use. 12:51:53 Time tracking: Regular hours 12:51:56 Plan of Care:Hemodynamics will remain stable., Cardiac rhythm will remain stable., Comfort level will be maintained., Respiratory function will remain adequate., Patient/ family verbilizes understanding of procedure., Procedure tolerated without complication., Recovers from procedure without complications.. 12:52:00 Patient received from Pre/Post Procedure Room to CCL 3 Alert and oriented. Tansferred to table in Supine position. 12:52:01 Warm blankets applied, and teodora hugger turned on for patient comfort. 12:52:01 Correct patient and procedure confirmed by team. 12:52:02 Signed procedure consent form obtained from patient. 12:52:03 ECG and BP/O2 sat monitors applied to patient. 12:52:04 Full Disclosure recording started 13:00:41 Vital chart was started 13:00:45 Baseline sample Acquired. 13:00:53 Baseline sample Acquired. 13:00:58 Rhythm: sinus rhythm 13:01:47 H&P Date Dictated: 08/28/2017 Within 30 days and on chart., H&P Addendum completed by physician on day of procedure. (MUST COMPLETE FOR ALL OUTPATIENTS). 13:01:55 Pre-procedure instructions explained to patient. 13:01:55 Pre-op teaching completed and patient verbalized understanding. 13:01:59 Family in waiting room. 13:02:01 Patient NPO since Midnight. 13:02:03 Is the patient allergic to Iodine/contrast media? No. 13:02:05 Is patient on blood thinner?Yes 13:02:07 ACC The patient was administered the following blood thiners within the last 24 hours: ACCPlavix 13:02:09 Patient diabetic? No. 13:02:10 Patient not . Patient has had hysterectomy. 13:02:14 Previous problem with sedation/anesthesia? No ? 13:02:29 Snore? Yes 13:02:31 Sleep apnea? No 13:02:32 Deviated septum? No 13:02:33 Opens mouth fully? Yes 13:02:34 Sticks out tongue? Yes 13:02:37 Airway obstruction? No ? 13:02:40 Dentures? No ? 13:02:45 Pre procedure: right dorsailis pedis pulse 1+ Palpable, but thready & weak; easily obliterated 13:03:02 Patient pain scale 0/10 ?. 13:03:25 IV patent on arrival in right hand with 0.9% NaCl at [facility]. 13:03:27 Lab results completed and on chart. 13:03:31 Right groin area was prepped with chlora-prep and draped in sterile fashion 13:03:32 Alarms reviewed by R. N. 13:03:33 Sharps counted by scrub and verified by R.N. 13:06:43 Oxygen 2 l/min NC was administered by Sai Hargrove RN; Per physician; 13:06:51 --------ALL STOP TIME OUT------ 13:06:52 Final Timeout: patient, procedure, and site verified with staff and physician. All members of the team are in agreement. 13:06:58 Heparin Flush Bag (1000units/500ml NS) 2 bags added to field was administered by Sai Hargrove RN; used for procedure; 13:07:06 0.9% NaCl ml/hr I.V. was administered by Sai Hargrove RN; Per physician; 13:07:10 Right groin site verified by team. 13:07:14 Physical assessment completed. ASA score P 2 - A patient with mild systemic disease as per Rafael Garrison MD. 13:07:18 Sedation plan: IV Moderate Sedation Medication:Versed, Fentanyl 13:07:21 Fentanyl 50 mcg I.V. was administered by Sai Hargrove RN; for sedation; 13:07:29 Versed 1 mg I.V. was administered by Sai Hargrove RN; for sedation; 13:08:51 Use device set Femoral Dx 13:08:55 Tegaderm 4 x 4 (1626W) opened to sterile field. 13:08:57 ACIST Hand Control (70189) opened to sterile field. 13:08:57 ACIST Manifold (24391) opened to sterile field. 13:08:59 ACIST Syringe (26817) opened to sterile field. 13:08:59 Bag Decanter (2002S) opened to sterile field. 13:09:00 Medline Cath Pack ([id number]) opened to sterile field. 13:09:00 SHEATH 5FR [place] (OQI464) opened to sterile field. 13:09:01 DIAGNOSTIC WIRE .035 260cm J wire (817319) opened to sterile field. 13:09:02 DIAGNOSTIC Multipack 5Fr catheter set (SE5084) opened to sterile field. 13:09:03 PERCUTANEOUS ENTRY 19GA needle opened to sterile field. 13:11:21 Fentanyl 50 mcg I.V. was administered by Sai Hargrove RN; for sedation; 13:11:29 Versed 1 mg I.V. was administered by Sai Hargrove RN; for sedation; 13:11:43 Procedure started. 13:11:45 Local anesthetic to right femoral artery with Lidocaine 2% by Rafael Garrison MD.INITIAL ACCESS ONLY 13:12:09 Zero performed for pressure channel P1 13:14:12 A 5 Fr sheath was inserted into the Right Femoral artery 13:14:25 Fentanyl 50 mcg I.V. was administered by Sai Hargrove RN; for sedation; 13:14:29 Versed 1 mg I.V. was administered by Sai Hargrove RN; for sedation; 13:14:34 A MULTIPACK Pigtail 5 Fr catheter was advanced over the wire and used for Procedure. 13:14:36 LV angiography performed. 13:14:38 LV gram done using HOLDER 13:14:47 EF : 60 % 13:14:54 Injector settings: Ml/sec: 7, Volume: 15, 13:14:56 Catheter removed. 13:15:15 A MULTIPACK JL 4.0 5Fr catheter was advanced over the wire and used for Procedure. 13:15:51 LCA angiography performed. 13:15:53 Catheter removed. 13:15:58 A MULTIPACK 3DRC 5Fr catheter was advanced over the wire and used for Procedure. 13:16:07 Fentanyl 50 mcg I.V. was administered by Sai Hargrove RN; for sedation; 13:16:13 Versed 1 mg I.V. was administered by Sai Hargrove RN; for sedation; 13:16:32 RCA angiography performed. 13:16:36 Catheter removed. 13:16:51 EXOSEAL 5Fr (EX500) opened to sterile field. 13:17:05 Sheath removed intact; hemostasis achieved with Exoseal to the Right Femoral artery. 13:17:07 Procedure ended.(Physican Out) 13:18:08 Fluoroscopy time 00.70 minutes. 13:18:12 Fluoroscopy dose: 71 mGy 13:18:12 Flurop Dose total: 71 13:18:17 Contrast amount:Isovue 300 51ml. 13:18:18 Sharps counted by scrub and verified by R.N. 13:18:20 Insertion/operative site no bleeding no hematoma. 13:18:22 Post-op/insertion site Right Femoral artery dressed using a 4 x 4 and Tegaderm. 13:18:23 Post Procedure Pulses reassessed and unchanged 13:18:26 Post-procedure physical assessment completed. ASA score P 2 - A patient with mild systemic disease as per Rafael Garrison MD. 13:18:31 Post procedure rhythm: unchanged. 13:18:33 Estimated blood loss: 10 ml 13:18:35 Post procedure instruction explained to patient.Patient verbalizes understanding. 13:18:36 Patient needs reinforcement of post procedure teaching. 13:18:48 Procedure Complication : No complications 13:19:04 Procedure and supply charges have been captured, reviewed, submitted and are correct. 13:19:49 Vital chart was stopped 13:19:49 See physician's report for complete and final results. 13:19:51 Report given to Pre/Post Procedure Room. 13:19:55 Patient transfered to Pre/Post Procedure Room with Stretcher. 13:22:54 Procedure ended. 13:22:54 Full Disclosure recording stopped 13:22:56 End room use (Document Last) Device Usage Item Name Manufacture Quantity Catalog Hospital Part Current Minimal Lot# / Number Charge Number Stock Stock Serial# Code Tegaderm 4 x 3M 1 1626W [id number] 134396 5 4 (1626W) ACIST Hand Acist 1 42041 487383 521520 843835 5 Control Medical (44110) Systems Racktivity ACIST Acist 1 12845 690650 385815 595208 5 Manifold Medical (26925) Systems Inc ACIST Acist 1 45516 317357 398250 130319 20 Syringe Medical (79285) Systems Inc Bag Decanter Microtek 1 2001S 139562 25125 541934 5 (2001S) Medical Inc. Medline Cath Cardinal 1 [id number] 541354 85661 488996 5 Pack Health ([id number]) SHEATH 5FR Terumo 1 VAN149 489550 281636 673587 40 [place] (EHK796) DIAGNOSTIC St Lex 1 024350 941721 505135 359750 30 WIRE .035 260cm J wire (373482) DIAGNOSTIC Cardinal 1 EK2748 336274 75855 910256 30 Multipack Health 5Fr catheter set (FW6571) PERCUTANEOUS Cook Medical 1 M50258 946876 261298 5 ENTRY 19GA needle MULTIPACK Cardinal 1 852090 5 Pigtail 5 Fr Health catheter MULTIPACK JL Cardinal 1 215900 5 4.0 5Fr Health catheter MULTIPACK Cardinal 1 619465 5 3DRC 5Fr Health catheter EXOSEAL 5Fr Cardinal 1 EX500 749248 385605 483556 10 (EX500) Health Signature Audit [place] Stage Time Signature Unsigned Intra-Procedure 08/31/2017 Yonas Perez 1:25:34 PM RT(R) Signatures Monitor : Yonas Perez RT Signature : Date : Time : [id number] [place] [address]
[~2017-08-31 09:17] MED LIST changes: +CO Q-10200 MG PO; +LEXAPRO20 MG PO; +MYRBETRIQ25 MG PO; +PRILOSEC10 M1 PO; +ZOCOR10 MG PO
[2017-08-31 10:23] VITALS: BP 114/69; Ht 165.1 cm; Wt 75.9 kg
[2017-08-31 10:53] LABS: BASOPHILS 0.2 % (0-2); EOSINOPHILS 1.2 % (0-7); HEMATOCRIT 41.3 % (36.0-48.0); IMMATURE GRANULOCYTES 0.1 % (0-5); LYMPHOCYTES 18.6 % (15-50); MCH 30.2 pg (26.0-34.0); MCHC 33.9 g/dL (31.0-37.0); MCV 89.2 fL (80.0-100.0); MEAN PLATELET VOLUME 9.5 fL (7.4-10.4); MONOCYTES 5.7 % (2-11); NEUTROPHILS 74.2 % (40-80); PLATELET COUNT 250 10x3/uL (130-400); RBC 4.63 10x6/uL (4.00-5.40); RDW 12.4 % (11.5-14.5); WBC 9.5 10x3/uL (4.8-10.8)
[2017-08-31 11:02] LABS: ANION GAP 13.6 mmol/L (8-16); CALCIUM 9.6 mg/dL (8.5-10.1); CARBON DIOXIDE 25.4 mmol/L (21.0-32.0)
== END | disposition home or self-care (01) ==
LOC: D.CATH 09:17
PROVIDERS: Internal Medicine Interventional Cardiology
DX: I25.119 Atherosclerotic heart disease of native coronary artery with unspecified angina pectoris (principal); I10 Essential (primary) hypertension; F17.200 Nicotine dependence, unspecified, uncomplicated; Z01.812 Encounter for preprocedural laboratory examination

== ENCOUNTER 2018-03-01 13:55 | Observation (INO) | payer OTHER ==
[~2018-03-01] VITALS: Ht 165.1 cm; Wt 73.2 kg
[2018-03-01 14:36] LABS: BASOPHILS 0.4 % (0-2); HEMATOCRIT 40.9 % (36.0-48.0); IMMATURE GRANULOCYTES 0.3 % (0-5); LYMPHOCYTES 34.7 % (15-50); MCH 30.2 pg (26.0-34.0); MCHC 34.2 g/dL (31.0-37.0); MCV 88.3 fL (80.0-100.0); MEAN PLATELET VOLUME 9.2 fL (7.4-10.4); MONOCYTES 5.9 % (2-11); NEUTROPHILS 56.7 % (40-80); PLATELET COUNT 249 10x3/uL (130-400); RBC 4.63 10x6/uL (4.00-5.40); RDW 12.5 % (11.5-14.5); WBC 7.1 10x3/uL (4.8-10.8)
[2018-03-01 15:05] LABS: ALBUMIN 3.8 g/dL (3.4-5.0); ALKALINE PHOSPHATASE 58 U/L (46-116); ALT (SGPT) 36 U/L (10-68); BILIRUBIN - TOTAL 0.27 mg/dL (0.2-1.3); CALC OSMOLALITY 282 mosm/kg (275-300); CALCIUM 8.8 mg/dL (8.5-10.1); CARBON DIOXIDE 27.2 mmol/L (21.0-32.0); CHLORIDE - SERUM 106 mmol/L (98-107); CREATININE - SERUM 0.8 mg/dL (0.6-1.3); GLUCOSE 93 mg/dL (74-106); PROTEIN - SERUM 7.4 g/dL (6.4-8.2); SODIUM 142 mmol/L (136-145); UREA NITROGEN 13 mg/dL (7-18); eGFR NON AFRICAN AMERICAN 80 mL/min (90-120)
[2018-03-01 15:06] LABS: CKMB 0.5 U/L (0.0-3.6); CREATINE KINASE 65 UL (21-215); PRO BNP 41 pg/mL (0-125)
[2018-03-01 15:15] LABS: TROPONIN-I < 0.017 ng/mL (0.000-0.060)
[2018-03-01 15:31] LABS: APPEARANCE CLEAR (CLEAR); BILIRUBIN NEGATIVE (NEGATIVE); COLOR YELLOW (YELLOW); GLUCOSE NEGATIVE (NEGATIVE); KETONE NEGATIVE (NEGATIVE); NITRITE NEGATIVE (NEGATIVE); PROTEIN NEGATIVE (NEGATIVE); UROBILINOGEN NORMAL (NORMAL)
[2018-03-02 00:59] VITALS: BP 140/71; Ht 165.1 cm; Wt 73.2 kg
[2018-03-02 03:40] LABS: BASOPHILS 0.4 % (0-2); EOSINOPHILS 3.3 % (0-7); HEMATOCRIT 38.3 % (36.0-48.0); HEMOGLOBIN 12.9 g/dL (12-16); IMMATURE GRANULOCYTES 0.3 % (0-5); LYMPHOCYTES 44.5 % (15-50); MCHC 33.7 g/dL (31.0-37.0); MCV 89.1 fL (80.0-100.0); MEAN PLATELET VOLUME 9.3 fL (7.4-10.4); MONOCYTES 7.5 % (2-11); PLATELET COUNT 241 10x3/uL (130-400); RDW 12.6 % (11.5-14.5); WBC 7.1 10x3/uL (4.8-10.8)
[2018-03-02 03:58] LABS: CALC OSMOLALITY 287 mosm/kg (275-300); CALCIUM 8.2 mg/dL (8.5-10.1); CARBON DIOXIDE 27.7 mmol/L (21.0-32.0); CHLORIDE - SERUM 109 mmol/L (98-107); CREATININE - SERUM 0.9 mg/dL (0.6-1.3); GLUCOSE 102 mg/dL (74-106); SODIUM 144 mmol/L (136-145); UREA NITROGEN 15 mg/dL (7-18); eGFR NON AFRICAN AMERICAN 70 mL/min (90-120)
[2018-03-02 04:00] VITALS: BP 103/61
[2018-03-02 04:04] LABS: TROPONIN-I < 0.017 ng/mL (0.000-0.060)
[2018-03-02] MEDS ORDERED: ISOSORBIDE MONO30 M1 PO (09:04)
== END 2018-03-02 09:30 | disposition home or self-care (01) ==
LOC: D.ER 13:55 → OBSVTIME 17:02 → D.M2 17:02
PROVIDERS: Family Medicine
DX: I25.110 Atherosclerotic heart disease of native coronary artery with unstable angina pectoris (principal); Z95.5 Presence of coronary angioplasty implant and graft; I10 Essential (primary) hypertension; K21.9 Gastro-esophageal reflux disease without esophagitis

== ENCOUNTER 2018-05-03 23:30 | Observation (INO) | payer OTHER ==
[~2018-05-03] VITALS: Ht 165.1 cm; Wt 72.9 kg
--- NOTE | ~2018-05-03 | MORECARE ---
CASE MANAGEMENT DISCHARGE SUMMARY PATIENT: COLBY KEY [place] UNIT: [id number] ADM DATE: 05/04/18 AGE: 52 : 67 SEX: F ROOM/BED: D.2114 AUTHOR: JESSY PATHAK PHYSICIAN: REFERRING PHYSICIAN: CARMELITA LOWERY MD DATE OF SERVICE: 05/06/18 Discharge Plan Patient Name: COLBY KEY Facility: [facility]:[place] : 1965 Planned Disposition: Home Anticipated Discharge Date: 05/04/18 Discharge Date: 05/04/2018 Expected LOS: 1 Initial Reviewer: [email or web address] Initial Review Date: 05/06/2018 Generated: 05/06/18 9:37 am Patient Name: COLBY KEY Page 33364 at 0837 All edits/amendments must be made on the electronic document DICTATION DATE: 05/06/18835 FIREWALL ENGINEER: [email or web address] 05/06/18835 RPT#: [id number] DC DATE:05/04/18 STATUS: DIS IN [facility] [address] [place] [address] END OF REPORT
[~2018-05-03 23:30] MED LIST changes: +ISOSORBIDE MONO30 M1 PO; +PEPCID AC20 MG PO; -PEPCID20 MG PO
[2018-05-03 23:52] LABS: BASOPHILS 0.3 % (0-2); EOSINOPHILS 2.4 % (0-7); HEMATOCRIT 36.8 % (36.0-48.0); HEMOGLOBIN 12.3 g/dL (12-16); IMMATURE GRANULOCYTES 0.1 % (0-5); LYMPHOCYTES 44.2 % (15-50); MCH 30.2 pg (26.0-34.0); MCHC 33.4 g/dL (31.0-37.0); MCV 90.4 fL (80.0-100.0); MEAN PLATELET VOLUME 9.2 fL (7.4-10.4); MONOCYTES 5.8 % (2-11); NEUTROPHILS 47.2 % (40-80); PLATELET COUNT 298 10x3/uL (130-400); RBC 4.07 10x6/uL (4.00-5.40); RDW 12.5 % (11.5-14.5); WBC 7.8 10x3/uL (4.8-10.8)
[2018-05-03 23:58] LABS: APTT 28.1 SECONDS (22.8-39.4); INR 0.96 (0.85-1.17); PROTIME 12.5 SECONDS (11.6-15.0)
[2018-05-04 00:03] VITALS: BP 142/68
[2018-05-04 00:03] LABS: ALBUMIN 3.9 g/dL (3.4-5.0); ALKALINE PHOSPHATASE 52 U/L (46-116); ALT (SGPT) 26 U/L (10-68); BILIRUBIN - TOTAL 0.18 mg/dL (0.2-1.3); CALC OSMOLALITY 283 mosm/kg (275-300); CALCIUM 9.1 mg/dL (8.5-10.1); CARBON DIOXIDE 28.8 mmol/L (21.0-32.0); CHLORIDE - SERUM 106 mmol/L (98-107); CREATININE - SERUM 0.8 mg/dL (0.6-1.3); GLUCOSE 107 mg/dL (74-106); POTASSIUM - SERUM 3.6 mmol/L (3.5-5.1); PROTEIN - SERUM 7.3 g/dL (6.4-8.2); SODIUM 141 mmol/L (136-145); UREA NITROGEN 20 mg/dL (7-18); eGFR NON AFRICAN AMERICAN 80 mL/min (90-120)
[2018-05-04 00:14] LABS: CKMB 0.5 U/L (0.0-3.6); CREATINE KINASE 81 UL (21-215); MAGNESIUM - SERUM 2.2 mg/dL (1.8-2.4)
[2018-05-04 00:17] LABS: TROPONIN-I < 0.017 ng/mL (0.000-0.060)
[2018-05-04 01:18] VITALS: BP 140/58; Ht 165.1 cm; Wt 72.9 kg
[2018-05-04] MEDS ORDERED: PROTONIX40 MG PO (01:33)
[2018-05-04 05:39] VITALS: BP 111/49
[2018-05-04 07:03] LABS: CKMB 0.5 U/L (0.0-3.6); CREATINE KINASE 73 UL (21-215); TROPONIN-I < 0.017 ng/mL (0.000-0.060)
[2018-05-04 09:00] VITALS: BP 120/58
[2018-05-04 11:00] VITALS: BP 120/59
[2018-05-04 13:00] LABS: CKMB 0.3 U/L (0.0-3.6); CREATINE KINASE 65 UL (21-215)
[2018-05-04 13:03] LABS: TROPONIN-I < 0.017 ng/mL (0.000-0.060)
[2018-05-04] MEDS ORDERED: CARAFATE1 G/10 ML PO (14:43)
[2018-05-04 15:00] VITALS: BP 124/60
== END 2018-05-04 17:30 | disposition home or self-care (01) ==
LOC: D.ER 23:30 → D.M2 05-04 00:25 → OBSVTIME 05-04 00:26 → D.M2 05-04 10:30
PROVIDERS: Family Medicine
DX: I25.110 Atherosclerotic heart disease of native coronary artery with unstable angina pectoris (principal); Z95.5 Presence of coronary angioplasty implant and graft; I10 Essential (primary) hypertension; E78.5 Hyperlipidemia, unspecified; F32.9 Major depressive disorder, single episode, unspecified; F17.213 Nicotine dependence, cigarettes, with withdrawal

== ENCOUNTER 2019-10-20 13:49 | Observation (INO) | payer OTHER ==
[~2019-10-20] VITALS: Ht 165.1 cm; Wt 75.5 kg
[~2019-10-20 13:49] MED LIST changes: +CARAFATE1 G/10 ML PO; +COREG 3.1253.125 MG PO; +PROTONIX40 MG PO; +RANEXA500 MG PO; +ZOCOR20 MG PO
[2019-10-20 14:45] LABS: BASOPHILS 0.3 % (0-2); EOSINOPHILS 2.2 % (0-7); HEMATOCRIT 41.2 % (36.0-48.0); HEMOGLOBIN 13.4 g/dL (12-16); IMMATURE GRANULOCYTES 0.1 % (0-5); LYMPHOCYTES 33.3 % (15-50); MCH 30.9 pg (26.0-34.0); MCHC 32.5 g/dL (31.0-37.0); MCV 94.9 fL (80.0-100.0); MEAN PLATELET VOLUME 9.3 fL (7.4-10.4); MONOCYTES 5.8 % (2-11); NEUTROPHILS 58.3 % (40-80); PLATELET COUNT 305 10x3/uL (130-400); RBC 4.34 10x6/uL (4.00-5.40); RDW 12.5 % (11.5-14.5); WBC 6.9 10x3/uL (4.8-10.8)
[2019-10-20 14:48] LABS: CALC OSMOLALITY 286 mosm/kg (275-300); CALCIUM 9.4 mg/dL (8.5-10.1); CARBON DIOXIDE 28.9 mmol/L (21.0-32.0); CHLORIDE - SERUM 105 mmol/L (98-107); CREATININE - SERUM 0.8 mg/dL (0.6-1.3); GLUCOSE 100 mg/dL (74-106); POTASSIUM - SERUM 4.1 mmol/L (3.5-5.1); SODIUM 144 mmol/L (136-145); UREA NITROGEN 13 mg/dL (7-18); eGFR NON AFRICAN AMERICAN 79 mL/min (90-120)
[2019-10-20 14:59] LABS: INR 0.98 (0.85-1.17)
[2019-10-20 15:03] LABS: ALBUMIN 4.2 g/dL (3.4-5.0); ALKALINE PHOSPHATASE 56 U/L (30-120); ALT (SGPT) 36 U/L (10-68); BILIRUBIN - TOTAL 0.33 mg/dL (0.2-1.3); CKMB 3.5 U/L (0.0-3.6); CREATINE KINASE 99 UL (21-215); MAGNESIUM - SERUM 2.3 mg/dL (1.8-2.4); PROTEIN - SERUM 7.3 g/dL (6.4-8.2)
[2019-10-20 15:08] LABS: TROPONIN-I < 0.017 ng/mL (0.000-0.060)
[2019-10-20 15:30] VITALS: BP 132/67
[2019-10-20 17:55] VITALS: BP 129/63
[2019-10-20 18:35] LABS: CKMB 0.5 U/L (0.0-3.6); CREATINE KINASE 94 UL (21-215)
[2019-10-20 18:36] LABS: TROPONIN-I < 0.017 ng/mL (0.000-0.060)
--- NOTE | 2019-10-20 19:23 | NUR ---
CALLED REPORT TO RENU DONOVAN.
--- NOTE | 2019-10-20 20:21 | NUR ---
PATIENT ARRIVED TO FLOOR VIA WHEELCHAIR. PATIENT IS ALERT AND ORIENTED, RESTING COMFORTABLY IN BED. NO S/S OF DISTRESS. NO C/O PAIN. CALL LIGHT WITHIN REACH. WILL CPOC.
[2019-10-20 23:55] VITALS: BP 119/71
[2019-10-20 23:56] LABS: CKMB 0.8 U/L (0.0-3.6); CREATINE KINASE 73 UL (21-215)
[2019-10-20 23:57] LABS: TROPONIN-I < 0.017 ng/mL (0.000-0.060)
[2019-10-21 00:54] VITALS: BP 119/71; BMI 24.9
[2019-10-21 04:37] VITALS: BP 110/51
[2019-10-21 05:54] LABS: BASOPHILS 0.2 % (0-2); EOSINOPHILS 2.2 % (0-7); HEMATOCRIT 40.5 % (36.0-48.0); HEMOGLOBIN 13.1 g/dL (12-16); IMMATURE GRANULOCYTES 0.2 % (0-5); LYMPHOCYTES 26.2 % (15-50); MCH 30.8 pg (26.0-34.0); MCHC 32.3 g/dL (31.0-37.0); MCV 95.3 fL (80.0-100.0); MEAN PLATELET VOLUME 9.1 fL (7.4-10.4); MONOCYTES 6.5 % (2-11); NEUTROPHILS 64.7 % (40-80); PLATELET COUNT 287 10x3/uL (130-400); RBC 4.25 10x6/uL (4.00-5.40); RDW 12.5 % (11.5-14.5)
[2019-10-21 06:20] LABS: WBC 9.8 10x3/uL (4.8-10.8)
[2019-10-21 06:35] LABS: ALBUMIN 3.6 g/dL (3.4-5.0); ALKALINE PHOSPHATASE 58 U/L (30-120); ALT (SGPT) 29 U/L (10-68); BILIRUBIN - TOTAL 0.37 mg/dL (0.2-1.3); CALC OSMOLALITY 286 mosm/kg (275-300); CARBON DIOXIDE 27.9 mmol/L (21.0-32.0); CHLORIDE - SERUM 108 mmol/L (98-107); CKMB 0.2 U/L (0.0-3.6); CREATINE KINASE 65 UL (21-215); CREATININE - SERUM 0.9 mg/dL (0.6-1.3); GLUCOSE 98 mg/dL (74-106); POTASSIUM - SERUM 3.8 mmol/L (3.5-5.1); PROTEIN - SERUM 6.4 g/dL (6.4-8.2); SODIUM 143 mmol/L (136-145); TROPONIN-I < 0.017 ng/mL (0.000-0.060); eGFR NON AFRICAN AMERICAN 69 mL/min (90-120)
[2019-10-21 06:36] LABS: UREA NITROGEN 17 mg/dL (7-18)
[2019-10-21 06:37] LABS: MAGNESIUM - SERUM 2.1 mg/dL (1.8-2.4); PHOSPHOROUS 4.5 mg/dL (2.5-4.9)
--- NOTE | 2019-10-21 07:11 | NUR ---
LYING IN BED WITH EYES CLOSED. AROUSES EASILY. STATES NO NEEDS
[2019-10-21 08:29] VITALS: BP 125/59
[2019-10-21 08:43] VITALS: Ht 165.1 cm; Wt 75.5 kg
[2019-10-21 08:56] LABS: UDS - AMPHET NEGATIVE QUAL (NEGATIVE); UDS - BARB NEGATIVE QUAL (NEGATIVE); UDS - BENZO NEGATIVE QUAL (NEGATIVE); UDS - COCAINE NEGATIVE QUAL (NEGATIVE); UDS - OPIATE NEGATIVE QUAL (NEGATIVE); UDS - PCP NEGATIVE QUAL (NEGATIVE); UDS - THC NEGATIVE QUAL (NEGATIVE)
[2019-10-21 09:22] VITALS: BP 124/63
[2019-10-21 09:41] LABS: BILIRUBIN NEGATIVE (NEGATIVE); GLUCOSE NEGATIVE (NEGATIVE); KETONE NEGATIVE (NEGATIVE); NITRITE NEGATIVE (NEGATIVE); SPECIFIC GRAVITY 1.015 (1.005-1.020)
[2019-10-21 09:42] LABS: BACTERIA FEW /hpf (NEGATIVE); EPITHELIAL CELLS 0-5 /hpf (0-5); RED CELLS - URINE 25-50 /hpf (0-5); WHITE CELLS - URINE OCC /hpf (NEGATIVE)
--- NOTE | 2019-10-21 13:40 | NUR ---
RESTING IN BED. NO NEEDS
--- NOTE | 2019-10-21 14:50 | NUR ---
IV CAME OUT BY ACCIDENT PER PT. TIP INTACT.
--- NOTE | 2019-10-21 16:59 | NUR ---
SITTING UP IN BED EATING DINNER NO NEEDS
[2019-10-21 17:13] VITALS: BP 117/51
--- NOTE | 2019-10-21 19:09 | NUR ---
RECEIVED BEDSID REPORT. RECEIVED CALL FROM XOCHITL SILVA APN, DISCHARGE COMPLETE.
--- NOTE | 2019-10-21 19:20 | NUR ---
PATIENT DISCHARGED. IV REMOVED BY DAYSHIFT. TELEMETRY BOX RETURNED TO PRODUCT MARKETING ANALYST. PATIENT ESCORTED OFF UNIT BY KNIFE BLADE POLISHER VIA WHEELCHAIR.
== END 2019-10-21 19:23 | disposition home or self-care (01) ==
LOC: D.ER 13:49 → D.M2 17:17 → OBSVTIME 19:36 → D.M2 10-21 19:23
PROVIDERS: Family Medicine; ADMIT Internal Medicine Nephrology; ATTEND Internal Medicine Nephrology
DX: I25.119 Atherosclerotic heart disease of native coronary artery with unspecified angina pectoris (principal); I10 Essential (primary) hypertension; E78.5 Hyperlipidemia, unspecified

== ENCOUNTER 2019-12-31 06:34 | Day surgery (SDC) | payer OTHER ==
[~2019-12-31] VITALS: Ht 165.1 cm; Wt 76.2 kg
[2019-12-31 07:15] LABS: HEMATOCRIT 41.3 % (36.0-48.0); HEMOGLOBIN 13.9 g/dL (12-16); MCH 31.1 pg (26.0-34.0); MCHC 33.7 g/dL (31.0-37.0); MCV 92.4 fL (80.0-100.0); MEAN PLATELET VOLUME 8.6 fL (7.4-10.4); RBC 4.47 10x6/uL (4.00-5.40); WBC 7.1 10x3/uL (4.8-10.8)
[2019-12-31 08:47] VITALS: BP 134/66; Ht 165.1 cm; Wt 76.2 kg
[2019-12-31] MEDS ORDERED: HYDROCODON-ACE1 EAC7 PO (10:14)
--- NOTE | 2019-12-31 10:39 | NUR ---
1039 PATIENT AROUSABLE, OPA DISCONTINUED, MAINTAINING PATENT AIRWAY
--- NOTE | 2019-12-31 13:19 | NUR ---
1225 IV REMOVED INSTRUCTIONS GIVEN
== END 2019-12-31 12:40 | disposition home or self-care (01) ==
LOC: D.OPS 06:34
PROVIDERS: Anesthesiology; ATTEND Surgery
DX: K64.8 Other hemorrhoids (principal); K62.5 Hemorrhage of anus and rectum; I10 Essential (primary) hypertension